=== PATIENT | female | born 1995 | race Caucasian/White ===

== ENCOUNTER 2020-12-24 15:11 | Outpatient (REF) | payer OTHER, SELFPAY ==
--- NOTE | 2020-12-24 15:00 | PAPFT_PTH ---
PATIENT: Marylou Hackett LOC: [facility] U#:[id number] AGE/SX: 25/F ROOM: RE12/24/[address]: Felicitas Cleveland : 1995 BED: DIS: 12/24/2020 SPEC #: [id number] RECD: 12/25/20 13:06 STATUS: ABI RENeftali #: [id number] CHASIDY: 12/24/20 15:[address]: Felicitas Cleveland DEPT: [facility] Cytology RECD BY: Beatriz Bales ENTERED: 12/25/20 13:06 SP TYPE: PAPFT OTHR DR: Deborah Ocasio Tissues: 1 - CX/ENDOCX FOR PAP SMEARS Procedures: PAP THIN PREP/UVM Screening Comments: [id number]
== END 2020-12-24 15:12 | disposition home or self-care (01) ==
LOC: NCHCN 15:11
PROVIDERS: PCP Family Medicine; Visit Provider Registered Nurse
DX: Z00.00 Encounter for general adult medical examination without abnormal findings (principal); Z12.4 Encounter for screening for malignant neoplasm of cervix
CPT/HCPCS: 88142

== ENCOUNTER 2023-12-28 12:49 | Outpatient (REF) | payer OTHER, SELFPAY ==
--- NOTE | 2023-12-28 16:30 | PAPFT_PTH ---
PATIENT: Marylou Hackett LOC: [facility] U#:[id number] AGE/SX: 28/F ROOM: RE12/28/[address]: MILLER: 1995 BED: DIS: 12/28/2023 SPEC #: [id number] RECD: 12/29/23 13:35 STATUS: ABI MORRIS #: [id number] CHASIDY: 12/28/23 16:[address]: Angie Arteaga DEPT: [facility] Cytology RECD BY: Beatriz Bales ENTERED: 12/29/23 13:36 SP TYPE: PAPFT OTHR DR: Deborah Ocasio Tissues: 1 - CX/ENDOCX FOR PAP SMEARS Procedures: PAP THIN PREP/UVM Screening HPV DNA PROBE Comments: [id number]
== END 2023-12-28 12:50 | disposition home or self-care (01) ==
LOC: NCHCN 12:49
PROVIDERS: PCP Family Medicine; Visit Provider Family Medicine
DX: Z12.4 Encounter for screening for malignant neoplasm of cervix (principal); Z11.51 Encounter for screening for human papillomavirus (HPV)
CPT/HCPCS: 88142; 87624

== ENCOUNTER 2024-05-22 10:35 | Outpatient (CLI) | payer OTHER, SELFPAY ==
[2024-05-22 10:47] LABS: Panorama Kit Sent via Fed Ex
[2024-05-22 10:59] LABS: Abs Immature Grans 0.03 10^3/uL (0.0-0.06); Absolute Basophil Count 0.02 10^3/uL (0.0-0.2); Absolute Eosinophil Count 0.09 10^3/uL (0.0-0.7); Absolute Lymphocyte Count 1.99 10^3/uL (1.2-3.4); Basophils % 0.3 %; Eosinophils % 1.3 %; HCT 38.1 % (36.0-46.0); Immature Grans % 0.4 %; Lymphocytes % 29.6 %; MCH 29.5 pg (27.0-33.0); MCHC 34.1 % (32.0-36.0); MCV 87 fL (80-95); MPV 10.7 fL (8.0-11.0); Monocytes % 7.4 %; Platelet Count 208 10^3/uL (130-400); RDW 12.5 % (11.7-14.6); RDW-SD 39.7 fL; WBC 6.73 10^3/uL (4.4-10.8)
[2024-05-22 11:32] LABS: TSH (W/Ref FT4) 2.13 uIU/mL (0.36-3.74)
[2024-05-22 18:43] LABS: Hepatitis B Surface Ag Negative (Negative)
[2024-05-22 18:51] LABS: HIV-1/2 Ag & Ab Screen Negative (Negative)
[2024-05-22 19:19] LABS: Hepatitis C Ab w Rflx HCV PCR Negative (Negative)
[2024-05-23 12:01] LABS: Rubella IgG Ab (UVM) Positive (See Note); Varicella IgG Antibody Positive (See Note)
[2024-05-23 23:30] LABS: Syphilis IgG w/Reflex Nonreactive (Nonreactive)
== END 2024-05-22 10:36 | disposition home or self-care (01) ==
LOC: LBO 10:36
PROVIDERS: PCP Family Medicine; Visit Provider Advanced Practice Midwife
DX: Z34.91 Encounter for supervision of normal pregnancy, unspecified, first trimester (principal)
CPT/HCPCS: 36415; 86787; 86803; 86850; 86900; 86901; 87340; 87389; 84443; 85025; 86762; 86780

== ENCOUNTER 2024-05-22 11:09 | Outpatient (REF) | payer OTHER, SELFPAY ==
[2024-05-23 11:52] LABS: Chlamydia Result Negative (Negative); GC Result Negative (Negative)
[2024-05-28 15:59] LABS: Buprenorphine Negative ng/mL (Cutoff: 5.0); Norbuprenorphine Negative ng/mL (Cutoff: 2.5)
== END 2024-05-22 11:10 | disposition home or self-care (01) ==
LOC: LBN 11:09
PROVIDERS: PCP Family Medicine; Visit Provider Advanced Practice Midwife
DX: Z34.91 Encounter for supervision of normal pregnancy, unspecified, first trimester
CPT/HCPCS: 80348; 87491; 87591; 87086

== ENCOUNTER 2024-07-14 14:40 | Outpatient (CLI) | payer OTHER, SELFPAY ==
--- NOTE | 2024-07-14 | DI.US_ITS ---
Exam(s) US ABDOMEN RENAL EXAM: US ABDOMEN RENAL CLINICAL HISTORY: r/o appendicitis, r/o kidney stone, r/o hydronephr TECHNIQUE: Ultrasound of complete upper abdomen performed using standard protocol. COMPARISON: US POCUS EXAM from 04/23/2024 FINDINGS: There is no ascites. GALLBLADDER/BILIARY: There are no gallstones. No gallbladder wall edema nor pericholecystic fluid. The common hepatic duct isnot identified. PANCREAS: Not studied SPLEEN: The spleen is not enlarged and there are no intrasplenic lesions evident. KIDNEYS:There is mild right-sided hydronephrosis. There are 2 tiny echogenic foci in the right kidne y which may be nonobstructive calculi. There is no obvious dilatation of the opposite-left renal col lecting system.. No echogenic foci seen in the left kidney. RLQ: Scanning of the right lower quadrant did not reveal evidence of a swollen appendix. Appendix wa s not visualized. No free fluid in the RLQ. URINARY BLADDER: Prevoid volume was 71 cc; postvoid volume was 20 cc. There is mild uniform thickeni ng of bladder wall which is probably related to under distension. There is a 7 mm echogenic focus in what appears to be the distal most left ureter but without associated hydronephrosis nor hydroureter on the left side. IMPRESSION: 1. No evidence of cholelithiasis. CBD diameter is difficult to measure but not obviously dilated. 2. There is mild unilateral right-sided hydronephrosis. Two small echogenic foci are noted in the m id pole region of the right kidney measuring 2 and 3 mm. These may represent intrarenal calculi in t he right kidney. There are no obvious calculi in the opposite-left kidney and no hydronephrosis on t he left side. 3. Possible calculus at the left ureterovesical junction. However, this does not appear to be signi ficantly obstructive as there is a slightly delayed but present left ureterovesical jet identified. Right ureterovesical jet identifies quickly. DATA REPOSITORY:
[2024-07-14 15:20] VITALS: BP 136/78; PULSE 68
[2024-07-14 15:22] VITALS: PULSE 80; RESP 18; TEMP 36.7; O2SAT 99
[2024-07-14] MEDS: Acetaminophen 500 MG TAB 1000 MG PO (15:49)
[2024-07-14] MEDS: Ondansetron O.D.T. 4 MG TABEF PO (15:49)
--- NOTE | 2024-07-14 16:06 | W.PM.PROGNOT ---
Date of Service Date of service: 07/14/24 Time of Service: 16:06 Assessment and Plan Assessment and plan (1) Acute right flank pain: Status: Acute Assessment and plan: A: 29 yo G1 @ 19 wks, no labor, FHT reassuring, cvx closed r/o right nephrolithiasis, hydronephrosis, appendicitis, Urine +blood & ketones, trace protein P: CMP, CBC, lipase, urine prot/creat ratio renal and right abdominal ultrasound (tech is available to come in) IVF D5LR to resolve ketones, then 1 liter LR PO tylenol for pain, zofran for nausea Subjective Subjective Interval history since last seen: Presents today with right flank and RLQ pain, reports back pain all day with lower abd cramping beginning an hour ago, as well as nausea and vomiting prior to arrival to hospital. Has not taken anything for pain or nausea, having difficulty getting comfortable, denies vaginal bleeding odor or itching. Exam Const General: cooperative, healthy appearing, well developed, well groomed and in distress (mild) Nutritional Appearance: average body habitus and well nourished Orientation: alert, awake and oriented x3 Chest Chest: normal inspection of the chest Breast inspection: normal inspection of the breasts Resp Effort & Inspection: normal respiratory effort and able to speak in complete sentences Cardio Rate: regular rate Rhythm: regular rhythm GI Inspection: normal to inspection Palpation: soft and other (tenderness on palpation in LRQ, RUQ, right flank) External Female Exam: normal external appearance Speculum Exam - Vagina: normal appearance of the vagina Speculum Exam - Cervix: normal appearance of the cervix and closed Back/Spine/Pelvis Other: +mild right CVAT Skin General skin exam: no rashes or lesions noted and elasticity normal Extrem General: normal to inspection, full ROM, capillary refill normal and normal gait Psych Mood: congruent mood Affect: normal affect Attitude: cooperative Thought Process: normal Objective Last Vital Signs Temp 98.1 F 07/14/24 15:22 Pulse 80 07/14/24 15:22 Resp 18 07/14/24 15:22 BP 136/78 07/14/24 15:20 Pulse Ox 99 07/14/24 15:22 Reviewed Pertinent PMH: Yes Objective Narrative Objective Narrative: Normotensive, afebrile Urine dip large blood, moderate ketones, tr prot, sp gr. 1.020 S=D, FHT 150, uterus soft and nontender SSE: nml appearing vaginal mucous, cvx closed/thick, posterior, no presenting parts in pelvis Time Spent with Patient Time Spent with Patient: 25-34 minutes Time was spent: preparing to see the patient(eg.review tests), obtaining and/or reviewing separately otained hiistory, ordering medications,tests, procedures, indepentently interpreting results and counseling the patient
[2024-07-14 16:14] LABS: HCT 37.1 % (36.0-46.0); HGB 12.4 g/dL (11.2-15.7); MCH 29.2 pg (27.0-33.0); MCHC 33.4 % (32.0-36.0); MCV 87 fL (80-95); MPV 10.6 fL (8.0-11.0); Platelet Count 200 10^3/uL (130-400); RBC 4.25 10^6/uL (3.93-5.22); RDW 12.6 % (11.7-14.6); RDW-SD 39.9 fL; WBC 9.74 10^3/uL (4.4-10.8)
[2024-07-14] MEDS: DEXTROSE 5%-LACTATED RINGERS 1,000 ML 999 ML IV (16:25)
[2024-07-14] MEDS: Normal Saline 10 ML VIAL IJ (16:28)
[2024-07-14 16:39] LABS: COMMENT (LAB VIEW ONLY) 101.59 mg/dL; PROTEIN 30.6 mg/dL
[2024-07-14 16:47] LABS: ALT 48 U/L (14-59); AST 19 U/L (15-37); Albumin 3.3 g/dL (3.4-5.0); Alkaline Phosphatase 51 U/L (46-116); Anion Gap 11.3 mmol/L (3-11); BUN 11 mg/dL (7-18); Bilirubin, Total 0.16 mg/dL (0.2-1.0); CO2 23.7 mmol/L (21.0-32.0); CREATININE 0.7 mg/dL (0.55-1.02); Chloride 104 mmol/L (98-107); Estimated GFR 118.51 (mL/min/1.73m2); Glucose 89 mg/dL (74-106); Lipase 30 U/L (<78); Potassium 3.5 mmol/L (3.5-5.1); Sodium 139 mmol/L (136-145); Total Protein 7.1 g/dL (6.4-8.2)
[2024-07-14] MEDS: Lactated Ringers 500 ML IV (18:25)
[2024-07-14 18:33] VITALS: BP 129/71; PULSE 77; PULSE 88; RESP 18; TEMP 36.9; O2SAT 98
--- NOTE | 2024-07-14 18:33 | W.PM.PROGNOT ---
Date of Service Date of service: 07/14/24 Time of Service: 18:33 Assessment and Plan Assessment and plan (1) Bilateral nephrolithiasis: Status: Acute (2) Acute right flank pain: Status: Acute Assessment and plan: A: Kidney stones visualized on ultrasound, final report pending Pt coping well with discomfort, appendix/liver/gb/pancreas concerns ruled out P: Consult with Dr. Colindres regarding management and medications Pt to be discharged now, tylenol and zofran as needed, strain urine, hydrate AMAP Plan urology consult tomorrow after radiology report finalized Pt has f/up appt on 07/18/24 in [facility]; will repeat urinalysis and prot/creat ratio then Instructed to call and return for pain management if unable to control at home Subjective Subjective Interval history since last seen: Tylenol was helpful, pain is much less, nausea gone, tolerating PO intake without emesis. Objective Last Vital Signs Temp 98.1 F 07/14/24 15:22 Pulse 80 07/14/24 15:22 Resp 18 07/14/24 15:22 BP 136/78 07/14/24 15:20 Pulse Ox 99 07/14/24 15:22 Laboratory Results - last 24 hr 07/14/24 07/14/24 07/14/24 15:53 15:53 15:55 WBC 9.74 RBC 4.25 Hgb 12.4 Hct 37.1 MCV 87 MCH 29.2 MCHC 33.4 RDW 12.6 Plt Count 200 MPV 10.6 Sodium 139 Potassium 3.5 Chloride 104 Carbon Dioxide 23.7 Anion Gap 11.3 H BUN 11 Creatinine 0.7 Est GFR (CKD-EPI 2020) 118.51 Glucose 89 Calcium 9.0 Total Bilirubin 0.16 L AST 19 ALT 48 Alkaline Phosphatase 51 Total Protein 7.1 Albumin 3.3 L Lipase 30 Cancelled Ur Random Creatinine 101.59 U Random Total Protein 30.6 U [place] Prot/Creat Ratio 0.30 Time Spent with Patient Time Spent with Patient: 25-34 minutes Time was spent: preparing to see the patient(eg.review tests), obtaining and/or reviewing separately otained hiistory, ordering medications,tests, procedures, referring, communicating with other health critical care transport nurse and counseling the patient
== END 2024-07-14 18:58 ==
LOC: BCD 14:40 → OBS 15:05
PROVIDERS: PCP Family Medicine; Visit Provider Advanced Practice Midwife
DX: N20.0 Calculus of kidney; O26.832 Pregnancy related renal disease, second trimester; Z3A.19 19 weeks gestation of pregnancy
CPT/HCPCS: 36415; 76770; 80053; 83690; 85027; 96360; 59025; 76700; 82565; 84156; 87086; 87480; 87510; 87660; G0378

== ENCOUNTER 2024-07-18 13:05 | Outpatient (REF) | payer OTHER, SELFPAY ==
[2024-07-18 15:18] LABS: Bilirubin Negative (Negative); Blood Negative (Negative); Clarity Clear (Clear); Glucose Negative (Negative); Ketones Negative (Negative); Leukocyte Esterase Negative (Negative); Nitrite Negative (Negative); Specific Gravity 1.015 (1.005-1.025); Urobilinogen 0.2 mg/dL (Up to 0.2)
[2024-07-18 16:12] LABS: COMMENT (LAB VIEW ONLY) 19.19 mg/dL; PROTEIN < 6.0 mg/dL
== END 2024-07-18 13:06 | disposition home or self-care (01) ==
LOC: LBN 13:05
PROVIDERS: PCP Family Medicine; Visit Provider Advanced Practice Midwife
DX: N20.0 Calculus of kidney (principal)
CPT/HCPCS: 81003; 82565; 84156

== ENCOUNTER 2024-09-17 07:29 | Outpatient (CLI) | payer OTHER, SELFPAY ==
[2024-09-17 10:13] LABS: HCT 35.3 % (36.0-46.0); HGB 11.5 g/dL (11.2-15.7); MCH 29.3 pg (27.0-33.0); MCHC 32.6 % (32.0-36.0); MCV 90 fL (80-95); MPV 10.5 fL (8.0-11.0); Platelet Count 164 10^3/uL (130-400); RBC 3.92 10^6/uL (3.93-5.22); RDW 13.3 % (11.7-14.6); RDW-SD 43.8 fL; WBC 8.52 10^3/uL (4.4-10.8)
[2024-09-17 10:55] LABS: Glucose,1 Hr (Glucola) 112 mg/dL (80-140)
== END 2024-09-17 07:30 | disposition home or self-care (01) ==
LOC: LBO 07:30
PROVIDERS: PCP Family Medicine; Visit Provider Advanced Practice Midwife
DX: Z34.93 Encounter for supervision of normal pregnancy, unspecified, third trimester (principal)
CPT/HCPCS: 36415; 82950; 85027

== ENCOUNTER 2024-11-12 09:38 | Outpatient (REF) | payer OTHER, SELFPAY | END 2024-11-12 09:39 | disposition home or self-care (01) | LOC: LBN 09:38 | PROVIDERS: PCP Family Medicine; Visit Provider Advanced Practice Midwife | DX: Z34.93 Encounter for supervision of normal pregnancy, unspecified, third trimester (principal) | CPT/HCPCS: 87081 ==

== ENCOUNTER 2024-11-19 11:16 | Outpatient (CLI) | payer OTHER, SELFPAY ==
[2024-11-19 11:34] LABS: HGB 12.2 g/dL (11.2-15.7); MCH 29.2 pg (27.0-33.0); MCHC 33.9 % (32.0-36.0); MCV 86 fL (80-95); MPV 11.8 fL (8.0-11.0); Platelet Count 151 10^3/uL (130-400); RBC 4.18 10^6/uL (3.93-5.22); RDW 13.5 % (11.7-14.6); RDW-SD 42.5 fL; WBC 8.32 10^3/uL (4.4-10.8)
[2024-11-19 12:26] LABS: ALT 19 U/L (14-59); AST 19 U/L (15-37); Albumin 2.7 g/dL (3.4-5.0); Alkaline Phosphatase 189 U/L (46-116); BUN 9 mg/dL (7-18); Bilirubin, Total 0.2 mg/dL (0.2-1.0); CREATININE 0.6 mg/dL (0.55-1.02); Calcium 9.6 mg/dL (8.5-10.1); Chloride 106 mmol/L (98-107); Estimated GFR 122.99 (mL/min/1.73m2); Glucose 77 mg/dL (74-106); Potassium 4.4 mmol/L (3.5-5.1); Sodium 137 mmol/L (136-145); Total Protein 6.6 g/dL (6.4-8.2)
== END 2024-11-19 11:17 | disposition home or self-care (01) ==
LOC: LBO 11:16
PROVIDERS: PCP Family Medicine; Visit Provider Advanced Practice Midwife
DX: R60.9 Edema, unspecified (principal)
CPT/HCPCS: 36415; 80053; 85027

== ENCOUNTER 2024-11-19 11:26 | Outpatient (REF) | payer OTHER, SELFPAY ==
[2024-11-19 13:09] LABS: COMMENT (LAB VIEW ONLY) 21.37 mg/dL; PROTEIN 10.2 mg/dL; Prot/Crea Ur Ratio 0.47
== END 2024-11-19 11:27 | disposition home or self-care (01) ==
LOC: LBN 11:26
PROVIDERS: PCP Family Medicine; Visit Provider Advanced Practice Midwife
DX: R60.9 Edema, unspecified (principal)
CPT/HCPCS: 82565; 84156

== ENCOUNTER 2024-11-20 00:37 | Outpatient (CLI) | payer OTHER, SELFPAY ==
--- NOTE | 2024-11-20 06:45 | DI.US_ITS ---
Exam(s) US OB MELVIN WEIGHT EXAM: US OB MELVIN WEIGHT CLINICAL HISTORY: S>D at 37 wks,inconsistent size of fetus,O26.843. TECHNIQUE: Transabdominal obstetrical ultrasound performed. COMPARISON: US US OB 2-3 TRIMESTER from 07/18/2024 FINDINGS:: Number of fetuses: 1 position: CEPHALIC Placental location: POSTERIOR No evidence of previa. BIOMETRIC DATA: BPD: 9.42cm, 38weeks 3days HC: 34.47cm, 39weeks 6days AC: 35.04cm, 39weeks FL: 6.84cm, 35weeks 1day EFW: 3,406.2g, 7lb 9.59oz, 71.4% Composite Age: 38weeks 1day BERKLEY: 12/03/2024 Heart Rate: 168bpm Amniotic fluid index: 10.87cm. Visually, amount of fluid is within normal limits. IMPRESSION: size and weight are within the expected range. DATA REPOSITORY:
== END 2024-11-20 00:57 ==
LOC: DI 00:37
PROVIDERS: PCP Family Medicine; Visit Provider Advanced Practice Midwife
DX: O26.843 Uterine size-date discrepancy, third trimester (principal); Z3A.38 38 weeks gestation of pregnancy
CPT/HCPCS: 76816

== ENCOUNTER 2024-11-22 09:33 | Outpatient (REF) | payer OTHER, SELFPAY ==
[2024-11-22 10:14] LABS: PROTEIN 10.5 mg/dL (0.0-11.9)
[2024-11-22 10:19] LABS: TOTAL PROTEIN,URINE TIMED 288.8 mg/24hr (0.0-149.1); Total Volume 2750 ml
== END 2024-11-22 09:34 | disposition home or self-care (01) ==
LOC: LBN 09:33
PROVIDERS: PCP Family Medicine; Visit Provider Advanced Practice Midwife
DX: R60.9 Edema, unspecified (principal)
CPT/HCPCS: 81050; 84155

== ENCOUNTER 2024-11-27 09:29 | Outpatient (CLI) | payer OTHER, SELFPAY ==
[2024-11-27 09:34] VITALS: BP 150/91; PULSE 75; TEMP 36.7
[2024-11-27 09:52] LABS: HCT 33.9 % (36.0-46.0); HGB 11.6 g/dL (11.2-15.7); MCH 29.4 pg (27.0-33.0); MCHC 34.2 % (32.0-36.0); MCV 86 fL (80-95); Platelet Count 140 10^3/uL (130-400); RBC 3.95 10^6/uL (3.93-5.22); RDW 13.4 % (11.7-14.6); RDW-SD 41.9 fL; WBC 7.29 10^3/uL (4.4-10.8)
[2024-11-27 09:57] VITALS: BP 173/97; PULSE 71
[2024-11-27 10:13] LABS: ALT 19 U/L (14-59); AST 18 U/L (15-37); Albumin 2.6 g/dL (3.4-5.0); Alkaline Phosphatase 192 U/L (46-116); Anion Gap 9.2 mmol/L (3-11); BUN 12 mg/dL (7-18); Bilirubin, Total 0.2 mg/dL (0.2-1.0); CO2 21.8 mmol/L (21.0-32.0); CREATININE 0.7 mg/dL (0.55-1.02); Calcium 8.9 mg/dL (8.5-10.1); Chloride 107 mmol/L (98-107); Estimated GFR 118.51 (mL/min/1.73m2); Glucose 98 mg/dL (74-106); Potassium 4.3 mmol/L (3.5-5.1); Sodium 138 mmol/L (136-145); Total Protein 6.3 g/dL (6.4-8.2)
[2024-11-27 10:14] VITALS: BP 150/91; PULSE 75
[2024-11-27 10:48] LABS: COMMENT (LAB VIEW ONLY) 99.58 mg/dL; PROTEIN 21.8 mg/dL; Prot/Crea Ur Ratio 0.21
--- NOTE | 2024-11-27 12:18 | W.OBNST ---
Date of service: 11/27/24 Time of Service: 12:18 NST Evaluation Reason for NST Reasons for Nonstress Test: GESTATIONAL HYPERTENSION Gestational Age Gestational Age in Weeks and Days: 38 Weeks and 5Days Test and Monitor Explained Test/Monitor Explained: Test Explained, Monitor Explained and Patient Verbalized Understanding Vital Signs Blood Pressure: 150/91 Pulse: 75 Temperature: 98.1 F NST Information Date on Monitor: 11/27/24 Time on Monitor: 09:30 Date off Monitor: 11/27/24 Time off Monitor: 10:15 Total Time on Monitor: 45 NST Interventions: PO Hydration NST Evaluation Patient States Movement: Present FHR Baseline: 160 Variability: Moderate 6-25 bpm Accelerations: 15x15 Decelerations: None NST Results: Reactive Note Ultrasound Done: N/A. NST Note Note: Labs nml today IOL for gHTN scheduled for 11/29, 0800 Warning signs for pre-eclampsia reviewed NST Reviewed and Verified by: Swetha Perez
[2024-11-27 12:19] VITALS: BP 150/91; PULSE 75; TEMP 36.7
== END 2024-11-27 12:17 | disposition other institution (70) ==
LOC: BCD 09:29 → OBS 09:32
PROVIDERS: PCP Family Medicine; Visit Provider Advanced Practice Midwife
DX: O13.3 Gestational [pregnancy-induced] hypertension without significant proteinuria, third trimester (principal); Z3A.38 38 weeks gestation of pregnancy
CPT/HCPCS: 36415; 80053; 85027; 59025; 82565; 84156

== ENCOUNTER 2024-11-28 13:17 | Inpatient (IN) | payer OTHER, SELFPAY ==
[2024-11-28] VITALS (7 sets, daily range): BP systolic 132–169; BP diastolic 64–93; PULSE 65–87; RESP 12; TEMP 37.1–37.4
[2024-11-28 10:45] LABS: HCT 34.7 % (36.0-46.0); HGB 11.4 g/dL (11.2-15.7); MCH 28.4 pg (27.0-33.0); MCHC 32.9 % (32.0-36.0); MCV 86 fL (80-95); MPV 12.4 fL (8.0-11.0); Platelet Count 137 10^3/uL (130-400); RBC 4.02 10^6/uL (3.93-5.22); RDW 13.4 % (11.7-14.6); RDW-SD 41.6 fL; WBC 8.16 10^3/uL (4.4-10.8)
[2024-11-28 11:12] LABS: COMMENT (LAB VIEW ONLY) 58.74 mg/dL; PROTEIN 11.4 mg/dL; Prot/Crea Ur Ratio 0.19
[2024-11-28 11:24] LABS: ALT 20 U/L (14-59); AST 19 U/L (15-37); Albumin 2.7 g/dL (3.4-5.0); Alkaline Phosphatase 194 U/L (46-116); Anion Gap 11.6 mmol/L (3-11); BUN 13 mg/dL (7-18); Bilirubin, Total 0.3 mg/dL (0.2-1.0); CO2 19.4 mmol/L (21.0-32.0); CREATININE 0.6 mg/dL (0.55-1.02); Calcium 9.1 mg/dL (8.5-10.1); Chloride 106 mmol/L (98-107); Estimated GFR 122.99 (mL/min/1.73m2); Glucose 77 mg/dL (74-106); Potassium 4.1 mmol/L (3.5-5.1); Sodium 137 mmol/L (136-145); Total Protein 6.4 g/dL (6.4-8.2); Uric Acid 5.4 mg/dL (2.6-6.0)
[2024-11-28] MEDS: miSOPROStol 25 MCG TAB 50 MCG PO ×2 (15:44→20:13)
--- NOTE | 2024-11-28 16:15 | HPE_ITS ---
Date of service: 11/28/24 Time of Service: 16:15 Assessment and Plan Assessment and plan (1) Gestational hypertension affecting first : Status: Acute Assessment and plan: Will continue to assess BP readings and signs of preeclampsia. Dr Moyer was notified of patient's status and admission (2) Encounter for induction of labor: Status: Acute Assessment and plan: Options for cervical ripening reviewed with Marylou and Anca. Will proceed with misoprostol for cervical ripening. Virginia Perez CNM will be assuming care at 1715. Anticipate . (3) Group B streptococcal infection during : Status: Acute Assessment and plan: Will stat antibiotics for GBS prophylaxis with signs of active labor. OB-HPI Labor/Delivery History of Present Illness Reason for Visit: IOL Chief Complaint: Scheduled Induction of Labor Indication for Induction: Gestational Hypertension. BERKLEY Calculator Estimated Delivery Date Method Current WG Current Estimate 12/06/24 LMP (Certain) 38w 6d Other Estimates 12/10/24 Ultrasound #1 38w 2d Comments: Marylou had NST yesterday and preeclampsia labs and elevated BPs noted. Per consult with Dr Moyer, IOL was recommended and Marylou and her partner, Anca agree. NST reactive this morning and she returns with Anca to begin cervical ripening. History of Present Expected Delivery Route/Plan - CNM FOB/ - Anca Hackett (first child together, has 13yo daughter) BB yes to circ GBS POSITIVE, plan PCN prophylaxis in labor Specific Issues/Plan 1. Hx migraine; start Vit D3 2000 U and Magnesium 400 mg qd 2. cfDNA low risk, declines CF/SMA screening, AFP declined, FAS nml, post placenta 3. 5P screen negative, PHQ9 score 0 4. Kidney stones @ 19 wks, urology consult scheduled on 07/30/24-2 stones in kidney 1 in bladder low risk of obstruction or passage, will avoid high sodium foods and increase h20 intake, taking tylenol 1000mg prn 5. EFW at 37 wks is 71st percentile, MELVIN 11, cephalic presentation 6. gestational proteinuria at 38wk, P:C 0.45, 24hr urine 288. BPs 130/80s, cmp WNL 6a. @ 38+5 wks labs repeated and nml, BP's mild range, IOL scheduled PFSH All Active Problems (Updated 11/28/24 @ 17:13 by Ny Osei CNM) Group B streptococcal infection during (Acute) Encounter for induction of labor (Acute) Gestational hypertension affecting first (Acute) Dependent edema (Acute) Bilateral nephrolithiasis (Acute) (Acute) Migraine (Chronic) Medical History (Updated 11/28/24 @ 17:13 by Ny Osei CNM) Acute right flank pain Size of fetus inconsistent with dates in third trimester Gestational proteinuria f/up 24 hr urine for protein was nml Family history of hypertension in father Migraine with aura Family History Father Cancer oral CA, pos. HPV Hypertension Paternal Grandfather Hypertension Social History Smoking/Tobacco Use Status: Never Smoking risk assessment performed?: Yes Drug use: Never Substance use type: does not use Housing: house Do you feel safe at home: Yes Do you feel safe in your relationship?: Yes History History 1 Para 0 Hx # Term Pregnancies 0 Multiple births 0 Hx # Pregnancies 0 Ectopic pregnancies 0 AB induced 0 Hx Number of Living Children 0 AB spontaneous 0 Meds Allergies and Home Medications Allergies Allergy/AdvReac Type Severity Reaction Status Date / Time No Known Drug Allergies Allergy Other (See Verified 11/27/24 08:49 Comment) environmental Allergy Mild Other (See Uncoded 11/27/24 08:49 Comment) Home Medications ?Medication ?Instructions ?Recorded ?Confirmed ?Type vits no.126-ferrous fum 1 tab PO DAILY 04/09/24 11/27/24 History 28 mg iron-folic acid 800 mcg tablet (Classic ) cholecalciferol (vitamin D3) 50 50 mcg PO DAILY 06/18/24 11/27/24 History mcg (2,000 unit) tablet (Vitamin D3) magnesium oxide 400 mg PO DAILY 06/18/24 11/27/24 History Exam Physical Exam Vital signs: Temp Pulse Resp BP 99.3 F 83 12 143/76 H 11/28/24 14:09 11/28/24 15:44 11/28/24 14:11/28/24 15:44 Vital Signs Reviewed: Yes Constitutional Constitutional: no acute distress Detailed Labor and Delivery Exam Dilation: 2 Effacement (%): 50 station: -1 Cervix position: mid Consistency: soft Ramos Score: Cervical Points Exam 0 1 2 3 Dilation Closed 1-2cm 3-4 cm 5-6cm Effacement 0-30% 40-50% 60-70% 80% Consistency Firm Medium Soft Station -3 -2 -1,0 +1,+2 Position Posterior Mid Anterior RAMOS Score(Cervical Ripeness Score): 7 Amniotic Membrane Status: Intact Monitor Mode: External Contraction Frequency(min): occasional Contraction Duration(sec): 40-50 Contraction Intensity: Mild Fetus A Heart Rate Baseline: 140 Monitor Accelerations: 15 X 15 Monitor Decelerations: None Variability: Moderate (6-25 BPM) Presentation: Cephalic Categories: Category I Est. Weight: 7 lb HEENT Exam HEENT Exam: Normal Respiratory Exam Respiratory Exam: Normal Cardiovascular Exam Cardiovascular Exam: Normal Abdominal Exam Abdominal Exam: Normal Exam Exam: Normal Extremities Exam Extremities Exam: Abnormal (1+ pitting edema) Skin Exam Skin Exam: Normal Psychiatric Exam Psychiatric Exam: Normal Results Abnormal Lab Findings: Abnormal Labs 11/28/24 10:18 Hct 34.7 L MPV 12.4 H Carbon Dioxide 19.4 L Anion Gap 11.6 H Alkaline Phosphatase 194 H Albumin 2.7 L Risk Assessment Risk for Shoulder Dystocia Historical/Initial OB: NEGATIVE FOR: Pelvic Abnormality, Pre- BMI>30, Previous Shoulder Dystocia or Previous Macrosomia 36 Weeks: POSITIVE FOR: Maternal Weight Gain>40lbs; NEGATIVE FOR: Current Gestational DM or EFW>4500gms 40 Weeks: POSTIVE FOR: Maternal Weight Gain >40lb; NEGATIVE FOR: EFW> 4500 gms or Post Dates Counseling: risk d/t nulliparity and excessive weight gain Delivery Plan @ 36wks: Risk for Pre-Eclampsia Date Initiated/Initials: not indicated Yes, if one or more: NEGATIVE FOR: Hx Pre-E/Gest HTN, Chronic HTN, Multiple Gestation, Pre-gestational DM, Renal Disease, Systemic Lupus or APA Syndrome Yes, if 2 or more: POSITIVE FOR: Nulliparity; NEGATIVE FOR: Age>= 35 yrs, >10yr btwn pregnancies, BMI>30, ethinicty, Mother/Sister w/ Pre-E or Previous IUGR Risk for Post- Hemorrhage Initial: NEGATIVE FOR: Multiple Gestation, Previous PPH, Known Clotting Deficiency, Grand Multiparity or Anticoagulation 36 Weeks: NEGATIVE FOR: Anemia, hgb<10, Low platelets(thrombocytopenia), Gestat ional HTN or Pre-E, Polyhydraminios or EFW>4500gms 40 Weeks: POSITIVE FOR: Gestation HTN or Pre-E; NEGATIVE FOR: Anemia, hgb<10, Low platelets (thrombocytopenia), Polyhydraminios or EFW>4500gms Counseled re: Active Management: Yes Risks Reviewed Risks Reviewed Upon Admission: Yes
--- NOTE | 2024-11-28 19:06 | PGE_ITS ---
Date of service: 11/28/24 Time of Service: 19:06 Informed Consent Informed Consent: Induction of Labor (gHTN) and Risk,Benefits,Alternatives Discussed Pelvic Exam Comments: VE deferred Contractions Monitor Mode: External Contraction Frequency(min): irregular5 q5-6 min Intensity: Mild Fetus A Monitor: External (US) Heart Rate Baseline: 135 Variability: Moderate (6-25 BPM) Categories: Category I Accelerations: Present Decelerations: None Amniotic Membrane Status: Intact Assessment and Plan Assessment and plan (1) Encounter for induction of labor: Status: Acute Assessment and plan: A: 29 yo G1 @ 38+1 wks, IOL for gHTN without severe features Cervical ripening in progress, received 50 mcg miso x1 this afternoon Category 1 tracing, GBS+, increased risk for PPH d/t IOL process, P: Misoprostel q4 hrs x3 today, allow for sleep during the night Resume miso with bonilla balloon in the morning pending labor status Begin PCN prophylaxis with active labor, pt is planning epidural for pain management Dr. Moyer consulting, anticipate (2) Gestational hypertension affecting first : Status: Acute Assessment and plan: Mild range pressures noted, no severe features, admission CMP and urine pr/cr ratio nml Monitoring per protocol (3) Group B streptococcal infection during : Status: Acute Assessment and plan: Start PCN prophylaxis when cervical change is detected Objective Abnormal lab results 11/28/24 Range/Units 10:18 Hct 34.7 L (36.0-46.0) % MPV 12.4 H (8.0-11.0) fL Carbon Dioxide 19.4 L (21.0-32.0) mmol/L Anion Gap 11.6 H (3-11) mmol/L Alkaline Phosphatase 194 H (46-116) U/L Albumin 2.7 L (3.4-5.0) g/dL Temp Pulse Resp BP 99.3 F 78 12 135/93 H 11/28/24 14:09 11/28/24 17:47 11/28/24 14:11/28/24 17:47 Laboratory Results WBC 8.16 10^3/uL (4.4-10.8) 11/28/24 10:18 RBC 4.02 10^6/uL (3.93-5.22) 11/28/24 10:18 Hgb 11.4 g/dL (11.2-15.7) 11/28/24 10:18 Hct 34.7 % (36.0-46.0) L 11/28/24 10:18 MCV 86 fL (80-95) 11/28/24 10:18 MCH 28.4 pg (27.0-33.0) 11/28/24 10:18 MCHC 32.9 % (32.0-36.0) 11/28/24 10:18 RDW 13.4 % (11.7-14.6) 11/28/24 10:18 Plt Count 137 10^3/uL (130-400) 11/28/24 10:18 MPV 12.4 fL (8.0-11.0) H 11/28/24 10:18 Sodium 137 mmol/L (136-145) 11/28/24 10:18 Potassium 4.1 mmol/L (3.5-5.1) 11/28/24 10:18 Chloride 106 mmol/L (98-107) 11/28/24 10:18 Carbon Dioxide 19.4 mmol/L (21.0-32.0) L 11/28/24 10:18 Anion Gap 11.6 mmol/L (3-11) H 11/28/24 10:18 BUN 13 mg/dL (7-18) 11/28/24 10:18 Creatinine 0.6 mg/dL (0.55-1.02) 11/28/24 10:18 Est GFR (CKD-EPI 2020) 122.99 (mL/min/1.73m2) 11/28/24 10:18 Glucose 77 mg/dL (74-106) 11/28/24 10:18 Uric Acid 5.4 mg/dL (2.6-6.0) 11/28/24 10:18 Calcium 9.1 mg/dL (8.5-10.1) 11/28/24 10:18 Total Bilirubin 0.3 mg/dL (0.2-1.0) 11/28/24 10:18 AST 19 U/L (15-37) 11/28/24 10:18 ALT 20 U/L (14-59) 11/28/24 10:18 Alkaline Phosphatase 194 U/L (46-116) H 11/28/24 10:18 Total Protein 6.4 g/dL (6.4-8.2) 11/28/24 10:18 Albumin 2.7 g/dL (3.4-5.0) L 11/28/24 10:18 Ur Random Creatinine 58.74 mg/dL 11/28/24 09:35 U Random Total Protein 11.4 mg/dL 11/28/24 09:35 U [place] Prot/Creat Ratio 0.19 11/28/24 09:35 ABO/Rh A Positive 11/28/24 10:18 Antibody Screen NEGATIVE 11/28/24 10:18 Vital Signs Reviewed: Yes Notable Details: mild range BP noted Objective Narrative Objective Narrative: Pt in good spirits, active moving around room Socializing with partner, tolerating PO intake well Denies VIGIL or RUQ pain Verbalizes agreement with plan of care: continue PO misoprostel this evening with a break during the night to sleep Will consider placement of bonilla balloon and/or AROM if Lin score advances by morning Subjective Patient Reports: No new Complaints Interval history since last seen: comfortable, occasional contraction that feels mild, no bleeding, no ROM, active fetus, tolerating PO intake well.
[2024-11-29] VITALS (45 sets, daily range): BP systolic 133–158; BP diastolic 67–103; PULSE 78–255; RESP 14–16; TEMP 36.5–36.6; O2SAT 79–99; BMI 34.9
[2024-11-29] MEDS: Zolpidem 5 MG TAB 10 MG PO (00:25)
[2024-11-29] MEDS: miSOPROStol 50 MCG TAB (00:25)
[2024-11-29] MEDS: Normal Saline Flush 10 ML SYR IVP (02:35)
--- NOTE | 2024-11-29 02:45 | W.PM.OBNL1 ---
Date of service: 11/29/24 Time of Service: 02:45 Informed Consent Informed Consent: Regional Anesthesia and Risk,Benefits,Alternatives Discussed Pelvic Exam Dilation: 5.5 Effacement (%): 100 station: -2 Cervix Position: anterior Consistency: soft Comments: scalp palpable Contractions Monitor Mode: External Contraction Frequency(min): q2 minutes Intensity: Moderate Fetus A Monitor: External (US) Heart Rate Baseline: 130 Variability: Moderate (6-25 BPM) Categories: Category I Accelerations: Present Decelerations: None Amniotic Membrane Status: Ruptured Rupture Method: Spontaneous Amniotic Fluid: Clear Date of Membrane Rupture: 11/29/24 Time of Membrane Rupture: 01:55 Assessment and Plan Assessment and plan (1) Encounter for induction of labor: Status: Acute Assessment and plan: A: Active labor with SROM, category 1 tracing P: Pt requests epidural, IV access initiated and PCN now infusing [employer] paged, pt using nitrous to good effect Anticipate Objective Vital Signs Reviewed: Yes Subjective Interval history since last seen: Pt reports a small gush of vaginal fluids when up to the BR to void, increased low back pain and rectal pressure with contractions which are frequent. Requests nitrous inhalant.
--- NOTE | 2024-11-29 03:48 | ANES.PREOP_ITS ---
General Info Date of Service Date Performed: 11/29/24 Height: 5 ft 3 in Weight: 89.358 kg Body Mass Index (BMI): 34.9 Meds Allergies and Home Medications Allergies Allergy/AdvReac Type Severity Reaction Status Date / Time No Known Drug Allergies Allergy Other (See Verified 11/27/24 08:49 Comment) environmental Allergy Mild Other (See Uncoded 11/27/24 08:49 Comment) Home Medication ?Medication ?Instructions ?Recorded vits no.126-ferrous fum 1 tab PO DAILY 04/09/24 28 mg iron-folic acid 800 mcg tablet (Classic ) cholecalciferol (vitamin D3) 50 50 mcg PO DAILY 06/18/24 mcg (2,000 unit) tablet (Vitamin D3) magnesium oxide 400 mg PO DAILY 06/18/24 Current Visit Medications: Current Medications Generic Name Dose Route Start Last Admin Trade Name Freq PRN Reason Stop Dose Admin Fentanyl/Ropivacaine 200 ml 11/29/24 03:15 Fentanyl/Ropivacaine 2 Mcg/Ml And 0.1% 200 Ml Cadd Cassette EP DIRECTED MIGUEL ANGEL Ringer's Solution 1,000 mls @ 200 mls/hr 11/28/24 15:00 IV INFUSION MIGUEL ANGEL Penicillin G Potassium 3,000, 50 mls @ 100 mls/hr 11/29/24 07:00 000 units/ Sodium Chloride IVPB Q4H MIGUEL ANGEL IV Miscellaneous Supplies 1 each 11/28/24 15:00 Iv Access IV DIRECTED MIGUEL ANGEL Misoprostol 50 mcg 11/28/24 15:00 11/28/24 20:13 Misoprostol 25 Mcg Tab PO 50 mcg Q4H MIGUEL ANGEL Administration Sodium Chloride 0 ml 11/28/24 15:00 Normal Saline Flush 10 Ml Syr IVP PRN PRN Sodium Chloride 0 ml 11/28/24 20:00 11/29/24 02:35 Normal Saline Flush 10 Ml Syr IVP 10 ml BID MIGUEL ANGEL Administration Sodium Chloride 0 ml 11/28/24 15:00 Normal Saline 10 Ml Vial IJ DIRECTED PRN Terbutaline Sulfate 0.25 mg 11/28/24 15:00 Terbutaline 1 Mg/Ml Vial SC PRN PRN Zolpidem Tartrate 10 mg 11/28/24 21:00 11/29/24 00:25 Zolpidem 5 Mg Tab PO 11/29/24 06:00 10 mg 2100 MIGUEL ANGEL Administration PFSH Active Problems Active Problems: Problem Status Onset Code Group B streptococcal infection during Acute O98.819, B95.1 Encounter for induction of labor Acute Z34.90 Gestational hypertension affecting first Acute O13.9 Dependent edema Acute R60.9 Bilateral nephrolithiasis Acute N20.0 Acute Z34.90 Migraine Chronic G43.909 Medical History Medical History (Updated 11/28/24 @ 17:13 by Ny Osei CNM) Acute right flank pain Size of fetus inconsistent with dates in third trimester Gestational proteinuria f/up 24 hr urine for protein was nml Family history of hypertension in father Migraine with aura Tobacco Smoking/Tobacco Use Status: Never Passive smoking exposure: No Substance Use Substance use: Never Substance use type: does not use Prental History History 2 1 Para 0 Hx # Term Pregnancies 0 Multiple births 0 Hx # Pregnancies 0 Ectopic pregnancies 0 AB induced 0 Hx Number of Living Children 0 AB spontaneous 0 Vital Signs and Lab Results Vital Signs Most Recent Vital Signs in EMR: Most Recent Vital Signs Temp Pulse Resp BP Pulse Ox 37.4 C 82 12 133/92 H 93 11/28/24 14:09 11/29/24 02:23 11/28/24 14:09 11/29/24 00:00 11/29/24 02:20 Lab Results 11/28/24 10:18 11/28/24 10:18 Blood Type / Crossmatch: 2 Antibody Screen NEGATIVE 11/28/24 Complete Blood Count: 2 White Blood Count 8.16 10^3/uL (4.4-10.8) 11/28/24 10:18 Red Blood Count 4.02 10^6/uL (3.93-5.22) 11/28/24 10:18 Hemoglobin 11.4 g/dL (11.2-15.7) 11/28/24 10:18 Hematocrit 34.7 % (36.0-46.0) L 11/28/24 10:18 Platelet Count 137 10^3/uL (130-400) 11/28/24 10:18 Complete Metabolic Panel: 2 Sodium 137 mmol/L (136-145) 11/28/24 10:18 Potassium 4.1 mmol/L (3.5-5.1) 11/28/24 10:18 Chloride 106 mmol/L (98-107) 11/28/24 10:18 Carbon Dioxide 19.4 mmol/L (21.0-32.0) L 11/28/24 10:18 BUN 13 mg/dL (7-18) 11/28/24 10:18 Creatinine 0.6 mg/dL (0.55-1.02) 11/28/24 10:18 Est GFR (CKD-EPI 2020) 122.99 (mL/min/1.73m2) 11/28/24 10:18 Calcium 9.1 mg/dL (8.5-10.1) 11/28/24 10:18 Albumin 2.7 g/dL (3.4-5.0) L 11/28/24 10:18 Glucose 77 mg/dL (74-106) 11/28/24 10:18 Liver Function Panel: 2 Alanine Aminotransferase (ALT/SGPT) 20 U/L (14-59) 11/28/24 10: 18 Aspartate Amino Transf (AST/SGOT) 19 U/L (15-37) 11/28/24 10:18 Coagulation Panel: 2 No Data to Display Cardiac Panel: 2 No Data to Display Arterial Blood Gas: 2 No Data to Display Venous Blood Gas: 2 No Data to Display Pancreas Panel: 2 No Data to Display Thyroid Panel: 2 No Data to Display Infectious Disease: 2 No Data to Display Blood Cultures: 2 No Data to Display Toxicology Panel: 2 No Data to Display Panel: 2 No Data to Display Anesthesia Assessment and Plan Anesthesia History Personal History: No History of Anesthesia Complications Family History: No Family History of Anesthesia Complications Exercise Tolerance Exercise Tolerance: Metabolic Equivalents>4 Pertinent Negatives Pertinent Negatives: No Symptoms of GERD, No Major Cardiovascular Symptoms or Complaints, No Major Pulmonary Symptoms or Complaints and No History of CVA/TIA Cardiac & Pulmonary Exam Cardiac Exam: Normal S1/S2 Heart Sounds Pulmonary Exam: Clear Bilateral Breath Sounds Implantable Cardiac Device Does patient have a Pacemaker or an ICD?: No Airway Exam Known Difficult Airway: No Mallampati Class: 2 Mouth Opening: Normal (> 3cm) Thyromental Distance: Greater than 3 cm Neck Range of Motion: Full ROM Neck Circumference: Normal Teeth Condition: Normal Dentition ASA Classification ASA Score: ASA 2 Emergency Case?: No NPO Status NPO Status: NPO Clears >2 hours, Solids >8 hours Status Status: Confirmed Anesthesia Plan Resuscitation Status: Full Code Anesthesia Technique: Spinal Anesthesia (intrathecal narcotic) Airway Planned: Natural Airway Pain Management: Surgeon and patient request nerve block Monitors Used: Standard Monitors
--- NOTE | 2024-11-29 04:16 | W.ANESPROC ---
Intrathecal Analgesia Date Performed: 11/29/24 Procedure Time: 03:58 Requesting Provider: Swetha Perez Procedure Location: Obstetrics Reason Performed: Labor Intrathecal Analgesia Standard Monitors Applied: Blood Pressure and SpO2 Patient Position: Sitting Timeout Performed: Yes Sedation Given (Indicate Dose Given): No Sedation given Patient Mental Status: Awake Sterility: Hand Hygiene, Surgical Cap, Surgical Mask, Sterile Gloves, Sterile Drape/Sheet and Chlorhexidine Placement Site: L4-L5 Interspace Spinal Needle Type: Other (24G) Needle Length: 4 Inch Spinal Procedure: Site Prepped, Sterile Drape Placed, 1% Lidocaine to skin and subcutaneous tissue with 25G needle, Introducer Needle Used, Spinal Needle Placed, Negative Heme, Negative CSF Flow and Bone Contacted despite needle repositioning Paresthesia: Left Paresthesia Duration: Transient and Right Paresthesia Duration: Transient Spinal Local Anesthetic (Indicate Dose Given): None Additives (Indicate Dose Given): None Ultrasound: Not Used Number of Attempts (See previous attempts in note section): 2 Procedure Tolerated: Other ( Attempted intrathecal x2 levels. L4/5 repeated osseous, no CSF. Attempted L3/4 reported right paresthesia, moved slightly left and left paresthesia. Patient with decreasing interval between contractions. Dec) Procedure Outcome: Unsuccessful Procedure Comment: Patient was fully dilated, +1. Discussion with CHEYANNE Coleman and patient. Decision to attempt. See note above. Performed By: Ralph Liang
--- NOTE | 2024-11-29 04:18 | PGE_ITS ---
Date of service: 11/29/24 Time of Service: 04:18 Informed Consent Informed Consent: Regional Anesthesia and Risk,Benefits,Alternatives Discussed Pelvic Exam Dilation: 10 station: +2 Contractions Monitor Mode: Palpation Contraction Frequency(min): q2-3 min Intensity: Moderate/Strong Fetus A Monitor: Doppler Heart Rate Baseline: 140 FHR Rhythm: Regular Characteristics: Normal Amniotic Membrane Status: Ruptured Assessment and Plan Assessment and plan (1) Encounter for induction of labor: Status: Acute Assessment and plan: A: 2nd stage labor, unsuccessful efforts to provide intrathecal anesthesia Category 1 tracing, now monitoring with intermittent doppler FHT checks P: Coached pushing efforts, FOB bedside supporting effectively Nitrous prn, anticipate Objective Vital Signs Reviewed: Yes Objective Narrative Objective Narrative: COMMERCIAL LOAN REVIEWER arrived, vaginal exam for full dilation, station +1 Pt desires intrathecal and consents, however 4 attempts were unsuccessful 2nd stage huddle completed Pt coping well, beginning coached pushing efforts Subjective Interval history since last seen: involuntary urges to bear down, using nitrous
--- NOTE | 2024-11-29 05:30 | W.PM.OBNL1 ---
Date of service: 11/29/24 Time of Service: 05:16 Pelvic Exam Dilation: 10 station: +3 (gathering caput) Contractions Monitor Mode: External Contraction Frequency(min): q2-3 Intensity: Moderate/Strong Fetus A Monitor: External (US) Heart Rate Baseline: 160 Variability: Moderate (6-25 BPM) Categories: Category II CategoryII Plan of Care: Intrauterine Resuscitation and Medical Consult ( summoned to room) Decelerations: Variable (deep) Recurrence: Recurrent Amniotic Membrane Status: Ruptured Assessment and Plan Assessment and plan (1) Encounter for induction of labor: Status: Acute Assessment and plan: A: 1+ hours of strong maternal effort with slow descent to +3 station EFM reapplied after second 2nd stage huddle, category 2 tracing assessed Moderate variability maintained, recurrent deep variables w/contractions w/rapid return to baseline 150's P: Dr. Moyer to room to evaluate for assisted delivery Intrauterine resuscitation measures applied, preparation for VAVD made Objective Vital Signs Reviewed: Yes Notable Details: mild range BP Objective Narrative Objective Narrative: Intermittent auscultation after SROM of clear fluid and category 1 tracing FHT's 140-150 per doppler per guidelines Continued intermittent FHT check into 2nd stage pushing After second 2nd stage huddle CNM requested RN to place EFM monitors @ 0515 Category 2 tracing assessed, 02 per mask applied with maternal position changes Delivery not imminent, FSE applied and Dr. Moyer summoned to room Subjective Interval history since last seen: pt pushing with each contraction, trying H&K, sitting on commode, changing positions in the bed. Results Abnormal Lab Findings: Abnormal Labs 11/28/24 10:18 Hct 34.7 L MPV 12.4 H Carbon Dioxide 19.4 L Anion Gap 11.6 H Alkaline Phosphatase 194 H Albumin 2.7 L
--- NOTE | 2024-11-29 06:25 | OBVDS_ITS ---
Date of service: 11/29/24 Time of Service: 06:00 OB Labor/ Delivery Information Baby A Delivery Delivery Method: Assisted (VAVD per Dr. Moyer) Cephalic Position: Vertex Vertex Position: Right Occipital Anterior Cord Description-Baby A: 3 Vessels and Nuchal Cord (tight, reduced over shoulder as shoulder delivered) Amniotic Fluid: Clear Quantitative Blood Loss: 500 ml Delivery Outcome: Liveborn Transferred: Remains with Mother Note: Pt sleeping after 3rd misprostel dose given at midnight, got up to void and noted active labor onset @ 0200 with SROM of clear fluid, category 1 tracing at that time and 5/100% cervical exam, EFM discontinued as pt desired to be upright and active. Intermittent auscultation per guidelines initiated, IV started and GBS prophylaxis begun. By 0245 pt requested epidural anesthesia, was reporting involuntary urges to bear down and need for a bowel movement so chose to labor in the bathroom, VE done for 7/100%. GLOBAL PROGRAM DIRECTOR arrived 0330 and VE repeated, found to be fully dilated with descent to +1. GLOBAL PROGRAM DIRECTOR reviewed options with pt and she requested intrathecal injection, however attempts to place this were unsuccessful. Pt was using nitrous to good effect and coping very well. 2nd stage huddle completed, coached pushing efforts were strong, intermittent doppler FHT's 140-150. After a second 2nd stage huddle was completed EFM monitors were reapplied @ 0515, periodic variable decels were noted to be deep and recurrent with moderate variability at baseline 150's. Intrauterine resuscitation measures were initiated, FSE was applied, and Dr. Moyer was summoned to the bedside, Peds was also paged to attend delivery. MD decision to facilitate delivery with vacuum, pop-off occurred x3 however the head had been brought successfully to the perineum. MD used local anesthesia and cut MLE, which hastened delivery of a vigorous male , shoulders delivered easily with tight nuchal cord reduced over anterior shoulder, terminal meconium noted on torso. Infant to mother's arms immediately, pitocin infusion begun, cord clamped then cut by FOB, cord blood collected and segment of cord set aside for cord gas retrieval. Miles placenta delivered intact with 3VC, partial fourth degree extension repaired with 4.0 Vicryl, 2.0 Vicryl, and 3.0 Rapide under local anesthesia by MD. Fundus was firm below umbilicus and lochia was controlled. Dr. Al arrived and examined while skin to skin wi th mother, strong bonding observed, apgars 6/8, weight 3360 gms. Providers Doctor: Regina Moyer Nurse Business System Manager: Swetha Perez Hydrometer Finisher: Devaughn Al Nurse: Samantha Anguiano Nurse: Sneha Clement Labor/Delivery Information Number of Babies in Womb: 1 Steroids Given: None Reason Steroids Not Administered: N/A Group Beta Strep: Positive Antibiotics Administered: Yes Number of Doses of Antibiotics: 1 Rubella Status: Immune Blood Type: A+ Varicella Immunity: Immune Shoulder Dystocia: No Stages of Labor Onset of Labor Date: 11/29/24 Onset of Labor Time: 02:00 Complete Dilatation Date: 11/29/24 Complete Dilatation Time: 03:14 Labor - Stage 1 Duration: 1 hours and 14 minutes ROM Baby A: 11/29/24 ROM Baby A: 01:55 ROM Total Time- Baby A: [id number] Infant Delivery Date-Baby A: 11/29/24 Delivery Time-Baby A: 05:47 Labor Stage 2 Duration: 2 hours and 33 minutes Placenta Delivery Date-Baby A: 11/29/24 Placenta Delivery Time-Baby A: 05:57 Labor-Stage 3 Duration: 10 minutes Total Length of Labor-Baby A: 3 hours and 47 minutes Placenta Status: Delivered Baby A Infant Gender: Male Gestational Age in Weeks/Days: 39 Weeks and 0 Days weight: 7 lb 6.521 oz Weight Comment: 3360 gms Score-1 Minute Interval(Baby A) Heart Rate-1 minute: 100 BPM or Greater Respiratory Effort- 1 minute: Slow Respiration/Weak Cry Muscle Tone-1 minute: Minimal Flexion/Extension Reflex Response-1 minute: Minimal Response Color-1 minute: Bluish Hands or Feet Total Score-1 minute: 6 Score-5 Minute Interval(Baby A) Heart Rate- 5 minute: 100 BPM or Greater Respiratory Effort-5 minute: Spontaneous/Strong Cry Muscle Tone-5 minute: Minimal Flexion/Extension Reflex Response-5 minute: Prompt Response Color-5 minute: Bluish Hands or Feet Total Score- 5 minute: 8
[2024-11-29 07:11] LABS: HCT 34.1 % (36.0-46.0); HGB 11.3 g/dL (11.2-15.7); MCH 28.8 pg (27.0-33.0); MCHC 33.1 % (32.0-36.0); MCV 87 fL (80-95); MPV 12.1 fL (8.0-11.0); Platelet Count 145 10^3/uL (130-400); RBC 3.93 10^6/uL (3.93-5.22); RDW 13.5 % (11.7-14.6); RDW-SD 42.1 fL; WBC 16.11 10^3/uL (4.4-10.8)
[2024-11-29] MEDS: Acetaminophen 325 MG TAB 650 MG PO ×3 (10:01→21:34)
[2024-11-29] MEDS: Ibuprofen 600 MG TAB PO ×2 (10:01→17:35)
[2024-11-29] MEDS: Docusate Sodium 100 MG CAP PO ×2 (10:02→22:14)
[2024-11-29] MEDS: Dibucaine 1% 28 GM TUBE TP (10:03)
[2024-11-29] MEDS: Hamamelis Leaf/Glycerin 100 EACH BOX PR (10:03)
--- NOTE | 2024-11-29 16:02 | W.PM.OBPNV1 ---
Date of service: 11/29/24 Time of Service: 16:02 Assessment and Plan Assessment and plan (1) Status post vacuum-assisted vaginal delivery: Status: Acute Assessment and plan: day 0 status post vacuum-assisted vaginal delivery with fourth degree extension to an episiotomy. Overall doing well. All questions answered. Will continue to monitor blood pressure closely in light of her diagnosis of gestational hypertension. May ambulate, shower. (2) Fourth degree perineal laceration during delivery, delivered: Status: Acute (3) Gestational hypertension affecting first : Status: Acute Subjective Subjective Interval history: Patient seen this afternoon. Overall doing well. All questions answered. She had concerns regarding aftercare, showering, and activity. Instructions given. Reassurance given. Overall doing well. Exam Physical Exam Vital signs: Temp Pulse Resp BP Pulse Ox 99.3 F 100 H 12 142/78 H 96 11/28/24 14:09 11/29/24 10:34 11/28/24 14:09 11/29/24 10:34 11/29/24 07:26 Vital Signs Reviewed: Yes Notable Details: Mild elevation in blood pressure. Will monitor. Results Hemoglobin/Hematocrit: Hgb 11.3 g/dL (11.2-15.7) 11/29/24 07:02 Hct 34.1 % (36.0-46.0) L 11/29/24 07:02 Abnormal Lab Findings: Abnormal Labs 11/28/24 11/29/24 10:18 07:02 WBC 16.11 H Hct 34.7 L 34.1 L MPV 12.4 H 12.1 H Carbon Dioxide 19.4 L Anion Gap 11.6 H Alkaline Phosphatase 194 H Albumin 2.7 L
[2024-11-29] MEDS: Labetalol 100 MG TAB PO (22:14)
[2024-11-30 02:00] VITALS: BP 127/76
[2024-11-30] MEDS: Acetaminophen 325 MG TAB 650 MG PO ×3 (05:50→19:43)
[2024-11-30] MEDS: Ibuprofen 600 MG TAB PO ×3 (05:50→19:43)
[2024-11-30 08:04] VITALS: BP 136/87; PULSE 82; O2SAT 98
[2024-11-30] MEDS: Labetalol 100 MG TAB PO ×2 (09:00→10:38)
[2024-11-30] MEDS: Docusate Sodium 100 MG CAP PO ×2 (09:00→19:43)
--- NOTE | 2024-11-30 09:56 | W.PM.OBPNV1 ---
Date of service: 11/30/24 Time of Service: 09:56 Assessment and Plan Assessment and plan (1) Status post vacuum-assisted vaginal delivery: Status: Acute Assessment and plan: Physically and emotionally doing well. Pain is improved. Voiding without difficulty. On stool softeners, Colace 100 twice daily. (2) Fourth degree perineal laceration during delivery, delivered: Status: Acute (3) Gestational hypertension: Status: Acute Assessment and plan: Will increase labetalol to 200 twice daily. Monitor blood pressures. Anticipate discharge home in 24 hours if stable. Will need close interval follow-up. Subjective Subjective Interval history: Patient seen this morning with her present. We did conversation regarding her medications, hypertension, and an increase in labetalol. I recommend that she stays for another 24 hours to fully monitor her blood pressures, and get appropriate medications and stability. She is breast-feeding. Baby will also need close interval follow-up due to ecchymosis from her delivery. We discussed gestational hypertension, preeclampsia, medications, close interval follow-up. We also had a conversation regarding emotional changes, blues, depression, intrusive thoughts, anxiety. She seems to have received this information well. Eugene baby status: Doing well, Nursing well and Strong Bonding Observed Eugene feeding status: Exclusively breast feeding Exam Physical Exam Vital signs: Temp Pulse Resp BP Pulse Ox 97.7 F 82 16 136/87 98 11/29/24 20:00 11/30/24 08:04 11/29/24 20:00 11/30/24 08:04 11/30/24 08:04 Vital Signs Reviewed: Yes Notable Details: Blood pressure is borderline elevated on labetalol 100 twice daily. Will i Constitutional Constitutional: no acute distress HEENT Exam HEENT Exam: Normal Neck Exam Neck Exam: Normal Respiratory Exam Respiratory Exam: Normal Cardiovascular Exam Cardiovascular Exam: Normal Fundal Exam Fundus: Below Umbilicus and Firm Extremities Exam Extremity Exam: Edema (3+ bilateral lower extremity); negative Calf Tenderness or Cold to Touch Skin Exam Skin Exam: Normal Neurological Exam Neurological Exam: Normal Results Hemoglobin/Hematocrit: Hgb 11.3 g/dL (11.2-15.7) 11/29/24 07:02 Hct 34.1 % (36.0-46.0) L 11/29/24 07:02 Abnormal Lab Findings: Abnormal Labs 11/28/24 11/29/24 10:18 07:02 WBC 16.11 H Hct 34.7 L 34.1 L MPV 12.4 H 12.1 H Carbon Dioxide 19.4 L Anion Gap 11.6 H Alkaline Phosphatase 194 H Albumin 2.7 L
[2024-11-30 13:44] VITALS: BP 151/90; PULSE 83; TEMP 36.8
[2024-11-30] MEDS: Dibucaine 1% 28 GM TUBE TP (14:22)
[2024-11-30] MEDS: NIFEdipine-CR 30 MG TABCR PO (14:22)
[2024-11-30 14:57] VITALS: BP 123/79; PULSE 83
[2024-11-30 18:30] VITALS: BP 147/98; PULSE 83
[2024-11-30] MEDS: Labetalol 100 MG TAB 200 MG PO (19:51)
[2024-11-30 19:58] VITALS: BP 131/81; PULSE 78; TEMP 36.8
[2024-12-01] MEDS: Acetaminophen 325 MG TAB 650 MG PO ×2 (01:38→07:33)
[2024-12-01] MEDS: Ibuprofen 600 MG TAB PO ×2 (01:38→07:33)
[2024-12-01 01:47] VITALS: BP 128/77; PULSE 68; RESP 14; TEMP 36.8
[2024-12-01 07:37] VITALS: BP 138/91; PULSE 83; RESP 16; TEMP 36.6; O2SAT 98
--- NOTE | 2024-12-01 08:22 | W.PM.OBPNV1 ---
Date of service: 12/01/24 Time of Service: 08:22 Assessment and Plan Assessment and plan (1) Gestational hypertension: Status: Acute (2) Fourth degree perineal laceration during delivery, delivered: Status: Acute (3) Term delivered: Status: Acute Assessment and plan: A: PPD#2, mild range pressures controlled with labetalol and procardia XL well, pleased with experience P: Pt desires discharge today after baby is circumcised Will continue labetalol 200 mg PO BID & Procardia 30 mg PO QD Plans POP's for BCM RTO tomorrow for BP check and at 1 wk for perineal repair check Written instructions reviewed and given to pt Routine P appt;s given for 2 and 6 wk checkups Subjective Subjective Patient comments: No complaints, Pain well controlled, Tolerating diet and Flatus present Patient's Mood: upbeat, happy baby status: Doing well, Nursing well, Rooming in and Strong Bonding Observed Challenge feeding status: Exclusively breast feeding Exam Physical Exam Vital signs: Temp Pulse Resp BP Pulse Ox 98 F 83 16 138/91 H 98 12/01/24 07:37 12/01/24 07:37 12/01/24 07:37 12/01/24 07:37 12/01/24 07:37 Vital Signs Reviewed: Yes Constitutional Constitutional: no acute distress, average body habitus and cooperative HEENT Exam HEENT Exam: Normal Neck Exam Neck Exam: Normal Breast Exam Bilateral: Breast Exam: Normal and Soft Nipple Exam: Normal and Uninjured Respiratory Exam Respiratory Exam: Normal Cardiovascular Exam Cardiovascular Exam: Normal Abdominal Exam Abdomen: Other (soft, nontender) Fundal Exam Fundus: Below Umbilicus and Firm Rectal Exam Rectal Exam: Normal Exam Perineum: Edematous and Repair Intact Extremities Exam Extremity Exam: Normal, Full ROM and Warm to Touch Back/Spine/Pelvis Exam Back Exam: Normal Skin Exam Skin Exam: Normal Neurological Exam Neurological Exam: Normal Psychiatric Exam Psychiatric Exam: Normal
--- NOTE | 2024-12-01 08:28 | W.PM.OBDISCH ---
Date of service: 12/01/24 Time of Service: 08:28 DS: Diagnosis Discharge Diagnosis (1) Gestational hypertension: Status: Acute (2) Fourth degree perineal laceration during delivery, delivered: Status: Acute (3) Term delivered: Status: Acute Discharge Plan Disposition Patient Disposition: Home Condition: Good Discharge Details Reason For Visit: IOL Admit Date/Time: 11/28/24 13:17 Admit Provider: Ny Osei Attending Provider: Ny Osei Primary Care Provider: Deborah Ocasio Hospital Course Hospital Course: Labor induced for gestational hypertension, vacuum assisted vaginal delivery on HD#2, episiotomy for delivery extended to partial fourth degree and was repaired. course noted for continued mild range BP and treated with anti-hypertensive medication, discharge to home on HD #4 (PPD#2) with follow up instructions. Home Meds and New Rx's Prescriptions: No Action magnesium oxide 400 mg magnesium tablet 400 mg PO DAILY cholecalciferol (vitamin D3) [Vitamin D3] 50 mcg (2,000 unit) tablet 50 mcg PO DAILY Classic 28 mg iron- 800 mcg tablet 1 tab PO DAILY labetalol 200 mg tablet 200 mg PO BID Qty: 60 3RF nifedipine [Procardia XL] 30 mg tablet extended release 24hr 30 mg PO DAILY Qty: 30 3RF norethindrone (contraceptive) 0.35 mg tablet 0.35 mg PO DAILY Qty: 84 4RF Rx Instructions: Start after 2 weeks Discharge Instructions Additional Instructions: Please come to the center on 12/02 for a BP check, come to the office on 12/06 for 1 week followup visit, and keep your 2 and 6 week appointments with the midwives. Call for any and all concerns. Stand Alone Forms: Instructions, Post Vaginal Deliver Activity:: Activity as Tolerated Equipment/Supplies:: No Equipment Needed Diet:: Normal Diet OB:DS Summary Summary Vaginal Delivery Method: Assisted (VAVD per Dr. Moyer) Episiotomy Description: Left Mediolateral Laceration Description: Perineal Laceration Extension: Fourth Degree Contraception Discussed Contraception Discussed: Yes Contraceptive Plan: Control Pill/Patch, Gender-Baby A: Male weight: 7 lb 6.521 oz Status at Discharge Functional status at discharge: independent ambulation Overall status at discharge: patient is progressing back to baseline Mental Status: mental status grossly normal Speech and Movement: speech and movement normal Mood: congruent mood Affect: normal affect Quality:SDOH Health Related Social Needs: No Data to Display Exam Physical Exam Vital signs: Temp Pulse Resp BP Pulse Ox 98 F 83 16 138/91 H 98 12/01/24 07:37 12/01/24 07:37 12/01/24 07:37 12/01/24 07:37 12/01/24 07:37 Vital Signs Reviewed: Yes Constitutional Constitutional: no acute distress, average body habitus and cooperative HEENT Exam HEENT Exam: Normal Neck Exam Neck Exam: Normal Breast Exam Bilateral: Breast Exam: Normal and Soft Respiratory Exam Respiratory Exam: Normal Cardiovascular Exam Cardiovascular Exam: Normal Abdominal Exam Abdomen: Other (soft, nontender) Fundal Exam Fundus: Below Umbilicus and Firm Rectal Exam Rectal Exam: Normal Exam Perineum: Edematous and Repair Intact Extremities Exam Extremity Exam: Normal, Full ROM and Warm to Touch Back/Spine/Pelvis Exam Back Exam: Normal Skin Exam Skin Exam: Normal Neurological Exam Neurological Exam: Normal Psychiatric Exam Psychiatric Exam: Normal Additional findings Additional findings: scalp palpable PFSH All Active Problems (Updated 12/01/24 @ 08:24 by Swetha Perez) Term delivered (Acute) Gestational hypertension (Acute) Fourth degree perineal laceration during delivery, delivered (Acute) Gestational hypertension affecting first (Acute) Bilateral nephrolithiasis (Acute) Migraine (Chronic) Medical History (Updated 12/01/24 @ 08:24 by Swetha Perez) Dependent edema Status post vacuum-assisted vaginal delivery Group B streptococcal infection during Encounter for induction of labor Acute right flank pain Size of fetus inconsistent with dates in third trimester Gestational proteinuria f/up 24 hr urine for protein was nml Family history of hypertension in father Migraine with aura Family History Father Cancer oral CA, pos. HPV Hypertension Paternal Grandfather Hypertension Social History Smoking/Tobacco Use Status: Never Smoking risk assessment performed?: Yes Drug use: Never Substance use type: does not use Housing: house Do you feel safe at home: Yes Do you feel safe in your relationship?: Yes History History 1 Para 0 Hx # Term Pregnancies 0 Multiple births 0 Hx # Pregnancies 0 Ectopic pregnancies 0 AB induced 0 Hx Number of Living Children 0 AB spontaneous 0 DS: Data Vitals/I&O Vitals and I&O: Vital Signs Temperature 98 F 12/01/24 07:37 Temperature 98.8 F 11/28/24 09:02 Temperature Source Oral 12/01/24 07:37 Pulse 83 12/01/24 07:37 Pulse 74 11/28/24 09:02 Pulse Rhythm Regular 12/01/24 01:48 Respiratory Rate 16 12/01/24 07:37 Blood Pressure 138/91 H 12/01/24 07:37 Blood Pressure 150/92 11/28/24 09:02 Blood Pressure Mean 106 12/01/24 07:37 Pulse Oximetry 98 12/01/24 07:37 Oxygen Delivery Method Room Air 11/28/24 14:09 Oxygen Flow Rate 0 11/28/24 14:09 Pain Level 4 11/29/24 21:34 Comment Pt c/o headache. Pain meds given 11/30/24 13:44 Intake & Output 11/30/24 11/30/24 12/01/24 11:59 23:59 11:59 Other: Urine Color Yellow
[2024-12-01] MEDS: Labetalol 100 MG TAB 200 MG PO (08:37)
[2024-12-01] MEDS: Docusate Sodium 100 MG CAP PO (08:37)
--- NOTE | 2024-12-02 22:53 | OBVDS_ITS ---
Date of service: 11/29/24 Time of Service: 09:00 OB Labor/ Delivery Information Baby A Delivery Note: I was awoken from the collar by the sex crimes detective just before 6 AM expressing concerns for the delivery pattern of this patient. She reported that the patient had un dergone spontaneous rupture of membranes around 2 AM; shortly thereafter they attempted to get an epidural but this was delayed due to a glitch in the notification system. By the time the anesthesiologist was able to arrive, the patient was already complete. They had attempted intrathecal, but he was unable to do this successfully. The decision was made to proceed with delivery to resolve her discomfort. Per the sex crimes detective, the patient had been pushing for a couple hours and seemed to be stalling; there was concern that the patient may need a . I was also informed that the heart tones were a persistent category 2 with deep and prolonged variables. On my way to the patient's room, I noted the concerning strep. Given the difficulties with contacting anesthesia earlier in the evening and the concerns surrounding the pager system, I instructed the melt house centrifugal operator, who was on the floor, to go ahead and call in the OR team for possible stat . When I entered the room of the patient, I found her well-controlled and continuing to attempt to push. She expressed compulsion to push with her contractions. And I have a IFSL was already in place. KANNAN appreciated complete +2 station with some caput. We attempted to flip her onto all fours and have her pushing, but this did not seem to help. She was placed back onto her back in a dorsolithotomy position with her legs supported by staff, and I assessed her pushing efforts in a traditional position. As she pushed, I could just see the scalp, and we discussed consideration of a vacuum-assisted vaginal delivery. We discussed them vacuum-assisted vaginal delivery comes with several risks including, but not limited to, bleeding on the scalp and brain, hematomas, trauma to the tissues and trauma to maternal tissues. We discussed that if vacuum fails we would need to proceed with section. Patient was consented for vacuum assisted vaginal delivery. The IFSL was removed, and given that the patient did not have an epidural and has been pushing. She had been emptying her bladder throughout the process. A Kiwi was carefully placed along what palpated as the most likely flexion point of the scalp. When the mother indicated a need to push, with Kiwi pressure was increased to the green zone, and her pushing effort was facilitated. This made considerable progress in the descent of the scalp; however, as the head approached +3 station, a pop- off occurred. Once more, the scalp was palpated and the vacuum was again carefully placed along the flexion point, and her next pushing effort was again facilitated with the pressure increased to the middle of the green zone, and again she made considerable progress with more of the head being exposed between the labia. A second pop-off occurred. We attempted vacuum assistance 1 more additional time in a similar fashion, and at this point, the baby was staying at +3 station. However, 1 more pop-off occurred. I informed the mother I was going to attempt an episiotomy; we discussed that this could cause additional tearing and bleeding. She was consented for episiotomy. 1% lidocaine without epi was injected along the LML line, and with her next pushing effort, and LML was cut. heart tones were noted to be in the 160s, and with 1 more additional, long maternal push, the head was delivered in ALEC. A tight nuchal cord was appreciated. I was unable to reduce it, but it was mobile enough to facilitate delivery through. The sex crimes detective assisted with deflecting the umbilical cord along the shoulder and the rest of the body delivered in a traditional fashion without issue. Though, of note, the mother was in Lisette positioning. The baby was noted to be immediately vigorous and was placed on the maternal abdomen. 1 minute of delayed cord clamping was observed, and the cord was double clamped and cut by the father the baby under the guidance of the physician. A segment of cord was collected and set aside for cord gases, and cord blood was subsequently collected. The baby was placed on the maternal abdomen given reassuring clinical presentation. Upon arrival of the insurance sales supervisor, the was examined by the insurance sales supervisor.The sex crimes detective collected Cord gases from the collected segment while I began assessing for repairs. 4th degree extension of the LML was appreciated. Bleeding was minimal. 1% lidocaine was injected into the tissues requiring repair. The rectal mucosa was first repaired with a 4-0 Vicryl. Next, the rectal sphincter was reapproximated using 2-0 Vicryl in an end-to-end fashion. Next, the remaining second-degree perineal laceration was repaired with 2-0 Vicryl Rapide in a traditional fashion. The patient tolerated the repair well. At the conclusion of the repair, good hemostasis was appreciated. Crede revealed good hemostasis. All instrumentation counts were correct. Providers Doctor: Regina Moyer Nurse Pattern Attendant: Swetha Perez Income Tax Administrator: Devaughn Al Nurse: Samantha Anguiano Nurse: Sneha Clement Labor/Delivery Information Number of Babies in Womb: 1 Steroids Given: None Reason Steroids Not Administered: N/A Group Beta Strep: Positive Antibiotics Administered: Yes Number of Doses of Antibiotics: 1 Rubella Status: Immune Blood Type: A+ Varicella Immunity: Immune Shoulder Dystocia: No Stages of Labor Onset of Labor Date: 11/29/24 Onset of Labor Time: 02:00 Complete Dilatation Date: 11/29/24 Complete Dilatation Time: 03:14 Labor - Stage 1 Duration: 1 hours and 14 minutes ROM Baby A: 11/29/24 ROM Baby A: 01:55 ROM Total Time- Baby A: [id number] Delivery Date-Baby A: 11/29/24 Delivery Time-Baby A: 05:47 Labor Stage 2 Duration: 2 hours and 33 minutes Placenta Delivery Date-Baby A: 11/29/24 Placenta Delivery Time-Baby A: 05:57 Labor-Stage 3 Duration: 10 minutes Total Length of Labor-Baby A: 3 hours and 47 minutes Placenta Status: Delivered Baby A Infant Gender: Male Gestational Age in Weeks/Days: 39 Weeks and 0 Days weight: 7 lb 6.521 oz Score-1 Minute Interval(Baby A) Heart Rate-1 minute: 100 BPM or Greater Respiratory Effort- 1 minute: Slow Respiration/Weak Cry Muscle Tone-1 minute: Minimal Flexion/Extension Reflex Response-1 minute: Minimal Response Color-1 minute: Bluish Hands or Feet Total Score-1 minute: 6 Score-5 Minute Interval(Baby A) Heart Rate- 5 minute: 100 BPM or Greater Respiratory Effort-5 minute: Spontaneous/Strong Cry Muscle Tone-5 minute: Minimal Flexion/Extension Reflex Response-5 minute: Prompt Response Color-5 minute: Bluish Hands or Feet Total Score- 5 minute: 8
== END 2024-12-01 11:49 | disposition home or self-care (01) | DRG 768 ==
LOC: BCD 14:02 → OBS 14:02
PROVIDERS: Advanced Practice Midwife; Admitting Provider Advanced Practice Midwife; PCP Family Medicine; Visit Provider Advanced Practice Midwife
DX: O13.4 Gestational [pregnancy-induced] hypertension without significant proteinuria, complicating childbirth (principal); Z37.0 Single live birth; O99.354 Diseases of the nervous system complicating childbirth; Z3A.39 39 weeks gestation of pregnancy; G43.E09 Chronic migraine with aura, not intractable, without status migrainosus; O70.3 Fourth degree perineal laceration during delivery; O76 Abnormality in fetal heart rate and rhythm complicating labor and delivery; O69.1XX0 Labor and delivery complicated by cord around neck, with compression, not applicable or unspecified; O77.0 Labor and delivery complicated by meconium in amniotic fluid; O12.24 Gestational edema with proteinuria, complicating childbirth; O99.892 Other specified diseases and conditions complicating childbirth; N20.0 Calculus of kidney; N21.0 Calculus in bladder
CPT/HCPCS: 36415; 62322; 80053; 85027; 86850; 86900; 86901; 59025; 59200; 82565; 84156; 84550; J0665; J2540; J2704; J3490